=== PATIENT | female | born 1965 | race Native Hawaiian/Other Pacific Islander ===

== ENCOUNTER 2018-11-30 07:33 | Day surgery (SDC) | payer OTHER | END 2018-11-30 08:50 | disposition home or self-care (01) | LOC: OR 07:33 | PROC: 3E0U3BZ Introduction of Anesthetic Agent into Joints, Percutaneous Approach (ICD-10-PCS; principal; 2018-11-30) | PROC: 3E0U33Z Introduction of Anti-inflammatory into Joints, Percutaneous Approach (ICD-10-PCS; 2018-11-30) | PROC: BQ10YZZ Fluoroscopy of Right Hip using Other Contrast (ICD-10-PCS; 2018-11-30) | DX: M16.11 Unilateral primary osteoarthritis, right hip (principal) | CPT/HCPCS: J1020; J3490 ==

== ENCOUNTER 2020-05-14 10:09 | Day surgery (SDC) | payer OTHER ==
[~2020-05-14] VITALS: Ht 30.5 cm; Wt 0.5 kg
== END 2020-05-14 11:40 | disposition home or self-care (01) ==
LOC: OR 10:09
PROC: 3E0R33Z Introduction of Anti-inflammatory into Spinal Canal, Percutaneous Approach (ICD-10-PCS; principal; 2020-05-14)
PROC: B01BYZZ Fluoroscopy of Spinal Cord using Other Contrast (ICD-10-PCS; 2020-05-14)
DX: M51.17 Intervertebral disc disorders with radiculopathy, lumbosacral region (principal)
CPT/HCPCS: J1020